=== PATIENT | male | born 1995 | race Hispanic/Latino ===

== ENCOUNTER 2016-09-09 05:28 | Emergency (ER) | payer MEDICAID ==
[2016-09-09 06:40] LABS: Basophils % (Auto) 0.6 % (0.0-1.8); Eosinophils % (Auto) 1.7 % (0.0-4.3); Hematocrit 44.5 % (35.5-45.6); Hemoglobin 14.8 gm/dl (11.8-15.2); Mean Corpuscular HGB Conc 33 % (32-34); Mean Corpuscular Hemoglobin 27 pg (28-32); Mean Corpuscular Volume 82 fl (84-94); Platelet Count 283 K/mm3 (140-440); Red Blood Count 5.41 M/mm3 (3.65-5.03); Red Cell Distribution Width 13.6 % (13.2-15.2); White Blood Count 13.6 K/mm3 (4.5-11.0)
[2016-09-09 06:51] LABS: Anion Gap 23 mmol/L; BUN/Creatinine Ratio 23.33; Blood Urea Nitrogen 14 mg/dL (9-20); Calcium 9.7 mg/dL (8.4-10.2); Carbon Dioxide 21 mmol/L (22-30); Chloride 93.9 mmol/L (98-107); Glucose 318 mg/dL (75-100); Potassium 3.9 mmol/L (3.6-5.0); Sodium 134 mmol/L (137-145)
[2016-09-09] MEDS ORDERED: TORADOL IM ONE (10:29)
[2016-09-09] MEDS ORDERED: PROVENTIL IH ONE (10:29)
--- NOTE | 2016-09-09 10:30 | Emergency Department Report ---
ED General Adult HPI - General Chief complaint: Chest Pain Stated complaint: CHEST PAIN/SOB Time Seen by Provider: 09/09/16 10:14 Source: patient, family Mode of arrival: Ambulatory Limitations: No Limitations, Physical Limitation - History of Present Illness Initial comments: This is a 21-year-old male, he is previously unknown to me, he has a past medical history of obesity, hypertension, PTSD, chronic tobacco use. The patient presents to the ER with multiple complaints. His first complaint is right shoulder pain. Shoulder pain is on the superior lateral aspect of the shoulder. He reports that he did some heavy lifting a week ago, and felt a pop in his shoulder. Since then, he is had right-sided paracervical pain, trapezius pain, and chest wall pain. The patient also complains of cough, mucus production, shortness of breath. The symptoms are chronic. The cough is new and worsened. It got worse around a week ago. He saw his primary care doctor, Dr. Edwards, who prescribed him antibiotics, and he reports that his symptoms have not improved. There is no posterior leg pain or leg swelling, there are no recent trips greater than 4 hours, and there are no recent hospital admissions. The patient reports that he smokes 6-10 cigarettes per day, and he reports multiple family members smoke. There is no midline neck pain, there is no abdominal pain, there is no saddle anesthesia, there is no bladder or bowel retention or incontinence. There is no vomiting or diaphoresis. The patient reports that he does sometimes fall asleep during the day and he feels quite sleepy sometimes during the day, he thinks that he snores a lot at night. He has not had a formal sleep study. He is interested in a nicotine patch for tobacco cessation. -: Gradual Location: chest, right, upper extremity Radiation: extremity Severity scale (0 -10): 7 Quality: aching Consistency: intermittent Improves with: rest Worsens with: movement Associated Symptoms: chest pain, cough, shortness of breath - Related Data Home Medications Medication Instructions Recorded Confirmed Last Taken ALPRAZolam [Xanax TAB] 1 mg PO BID PRN 09/09/16 09/09/16 09/09/16 Bisoprolol/Hctz [Ziac 10-6.25] 1 each PO DAILY 09/09/16 09/09/16 09/09/16 Venlafaxine HCl [Effexor Xr] 150 mg PO DAILY 09/09/16 09/09/16 09/09/16 amLODIPine [Norvasc] 5 mg PO DAILY 09/09/16 09/09/16 09/09/16 glyBURIDE [Glyburide] 5 mg PO BID 09/09/16 09/09/16 09/09/16 metFORMIN [Glucophage] 500 mg PO BID 09/09/16 09/09/16 09/09/16 Previous Rx's Medication Instructions Recorded Last Taken Type Albuterol Sulfate [Proair 90 mcg IH Q4HR PRN #2 [email or web address] 09/09/16 Unknown Rx Respiclick] Ibuprofen [Motrin] 600 mg PO Q8H PRN #30 tablet 09/09/16 Unknown Rx Nicotine [Habitrol] 14 mg TD DAILY #30 patch 09/09/16 Unknown Rx Allergies Allergy/AdvReac Type Severity Reaction Status Date / Time codeine Allergy Unknown Verified 09/09/16 05:56 oxycodone HCl [From Percocet] Allergy Vomiting Verified 09/09/16 05:54 pseudoephedrine sulfate Allergy Vomiting Verified 09/09/16 05:56 [From Claritin-D] ED Review of Systems ROS: Stated complaint: CHEST PAIN/SOB Other details as noted in HPI Constitutional: denies: fever, malaise Eyes: denies: vision change ENT: congestion. denies: epistaxis Respiratory: cough, shortness of breath Cardiovascular: chest pain Gastrointestinal: denies: vomiting Musculoskeletal: arthralgia, myalgia Skin: denies: lesions Neurological: denies: weakness Psychiatric: as per HPI ED Past Medical Hx - Past Medical History Previous Medical History?: Yes Hx Hypertension: Yes Hx Diabetes: Yes Hx Psychiatric Treatment: Yes (depression adhd PTSD asberger's) Additional medical history: autistic, depression - Surgical History Past Surgical History?: Yes Additional Surgical History: tonsillectomy. ear tubes - Social History Smoking Status: Current Every Day Smoker Substance Use Type: None - Medications Home Medications: Home Medications Medication Instructions Recorded Confirmed Last Taken Type ALPRAZolam [Xanax TAB] 1 mg PO BID PRN 09/09/16 09/09/16 09/09/16 History Albuterol Sulfate [Proair 90 mcg IH Q4HR PRN #2 [email or web address] 09/09/16 Unknown Rx Respiclick] Bisoprolol/Hctz [Ziac 10-6.25] 1 each PO DAILY 09/09/16 09/09/16 09/09/16 History Ibuprofen [Motrin] 600 mg PO Q8H PRN #30 tablet 09/09/16 Unknown Rx Nicotine [Habitrol] 14 mg TD DAILY #30 patch 09/09/16 Unknown Rx Venlafaxine HCl [Effexor Xr] 150 mg PO DAILY 09/09/16 09/09/16 09/09/16 History amLODIPine [Norvasc] 5 mg PO DAILY 09/09/16 09/09/16 09/09/16 History glyBURIDE [Glyburide] 5 mg PO BID 09/09/16 09/09/16 09/09/16 History metFORMIN [Glucophage] 500 mg PO BID 09/09/16 09/09/16 09/09/16 History ED Physical Exam - General Limitations: Physical Limitation General appearance: alert, in no apparent distress - Head Head exam: Present: atraumatic, normocephalic - Eye Eye exam: Present: normal appearance, EOMI. Absent: nystagmus - ENT ENT exam: Present: normal exam, normal orophraynx, mucous membranes moist, normal external ear exam - Neck Neck exam: Present: normal inspection, full ROM. Absent: tenderness, meningismus - Respiratory Respiratory exam: Present: normal lung sounds bilaterally, decreased breath sounds. Absent: respiratory distress, rhonchi, stridor - Cardiovascular Cardiovascular Exam: Present: normal rhythm, tachycardia, normal heart sounds. Absent: systolic murmur, diastolic murmur, rubs, gallop - GI/Abdominal GI/Abdominal exam: Present: soft, normal bowel sounds. Absent: distended, tenderness, guarding, rebound, rigid, pulsatile mass - Rectal Rectal exam: Present: deferred - Extremities Exam Extremities exam: Present: normal inspection, tenderness, normal capillary refill, other (the compartments are soft. There is no palpable cord. Sensation is intact to light touch in the deltoid, median, radial, ulnar distribution. 2+ pulses noted in the bilateral upper extremities. Full range of motion to the left upper extremity. Proprioception, light touch, pinprick intact to the bilateral upper extremities. The right shoulder is tender laterally. There is no redness, pus or streaking. The compartments are soft. Full range of motion in the bilateral wrists, bilateral elbows. Patient is able to abduction the right shoulder up to 90, he cannot range it further than 90 secondary to pain. He is able to hold the shoulder parallel to the dfloow without difficulty.). Absent: pedal edema, joint swelling, calf tenderness - Back Exam Back exam: Present: normal inspection, full ROM. Absent: tenderness, CVA tenderness (R), CVA tenderness (L), muscle spasm, paraspinal tenderness, vertebral tenderness - Neurological Exam Neurological exam: Present: alert, oriented X3, normal gait, other (Extraocular movements intact. Tongue midline. No facial droop. Facial sensation intact to light touch in the V1, V2, V3 distribution bilaterally. 5 and 5 strength in 4 extremities.. Sensation is intact to light touch in 4 extremities.). Absent : motor sensory deficit - Psychiatric Psychiatric exam: Present: normal affect, normal mood - Skin Skin exam: Present: warm, dry, intact, normal color. Absent: rash ED Course Vital Signs 09/09/16 09/09/16 09/09/16 05:31 08:57 09:10 Temperature 98.3 F 98.6 F Pulse Rate 117 H 103 H Respiratory 22 20 20 Rate Blood Pressure 152/86 Blood Pressure 126/79 [Right] O2 Sat by Pulse 96 97 98 Oximetry 09/09/16 11:01 Temperature Pulse Rate 98 H Respiratory 18 Rate Blood Pressure Blood Pressure 148/91 [Right] O2 Sat by Pulse 100 Oximetry ED Medical Decision Making - Lab Data Result diagrams: 09/09/16 06:10 09/09/16 06:10 Vital Signs 09/09/16 09/09/16 09/09/16 05:31 08:57 09:10 Temperature 98.3 F 98.6 F Pulse Rate 117 H 103 H Respiratory 22 20 20 Rate Blood Pressure 152/86 Blood Pressure 126/79 [Right] O2 Sat by Pulse 96 97 98 Oximetry 09/09/16 11:01 Temperature Pulse Rate 98 H Respiratory 18 Rate Blood Pressure Blood Pressure 148/91 [Right] O2 Sat by Pulse 100 Oximetry Lab Results 09/09/16 09/09/16 Range/Units 06:10 06:10 WBC 13.6 H (4.5-11.0) K/mm3 RBC 5.41 H (3.65-5.03) M/mm3 Hgb 14.8 (11.8-15.2) gm/dl Hct 44.5 (35.5-45.6) % MCV 82 L (84-94) fl MCH 27 L (28-32) pg MCHC 33 (32-34) % RDW 13.6 (13.2-15.2) % Plt Count 283 (140-440) K/mm3 Lymph % (Auto) 21.3 (13.4-35.0) % Mills % (Auto) 5.5 (0.0-7.3) % Eos % (Auto) 1.7 (0.0-4.3) % Baso % (Auto) 0.6 (0.0-1.8) % Lymph # 2.9 (1.2-5.4) K/mm3 Mills # 0.7 (0.0-0.8) K/mm3 Eos # 0.2 (0.0-0.4) K/mm3 Baso # 0.1 (0.0-0.1) K/mm3 Seg Neutrophils % 70.9 H (40.0-70.0) % Seg Neutrophils # 9.6 H (1.8-7.7) K/mm3 Sodium 134 L (137-145) mmol/L Potassium 3.9 (3.6-5.0) mmol/L Chloride 93.9 L (98-107) mmol/L Carbon Dioxide 21 L (22-30) mmol/L Anion Gap 23 mmol/L BUN 14 (9-20) mg/dL Creatinine 0.6 L (0.8-1.5) mg/dL Estimated GFR > 60 ml/min BUN/Creatinine Ratio 23.33 % Glucose 318 H (75-100) mg/dL Calcium 9.7 (8.4-10.2) mg/dL Troponin T < 0.010 (0.00-0.029) ng/mL - EKG Data -: EKG Interpreted by [facility] EKG shows normal: sinus rhythm Rate: tachycardia - EKG Data 09/09/16 11:26 sinus tachycardia, 108 bpm, motion artifact, abnormal EKG, not consistent with STEMI, appears unchanged from prior EKG from February 2014 - Radiology Data Radiology results: report reviewed, image reviewed X-ray of the shoulder is negative. X-ray the chest is negative - Medical Decision Making Differential diagnosis: Shoulder sprain, shoulder strain, bronchitis, pneumonia , musculoskeletal pain Assessment and plan: 21-year-old male with cough, chest tightness, shortness of breath, mucus production, chronic tobacco use, chronic family members who also consumed tobacco, reproducible right shoulder pain. He is afebrile, with reassuring vital signs, there are no pulmonary blisters or DVT risk factors, he is low risk by well's criteria, he is low risk by CURT score, he is low risk by heart score. Patient's symptoms have been present for more than 8 hours, therefore as per the emergency causes of emergency physicians clinical policy, myocardial infarction may be excluded with one set of troponin/cardiac enzymes. He has no neurovascular deficits, he felt improved after Toradol, and albuterol. His tachycardia resolved. His physical exam and history are not consistent with cervical/epidural compression or radicular compression. He is placed in a sling. Extensive discussion had with the patient regarding the need for lifestyle modifications, including tobacco sensation, and follow-up with his primary care doctor for his blood pressure, and glucose. I also instructed him and family members presents to discontinue tobacco consumption. Critical care attestation.: If time is entered above; I have spent that time in minutes in the direct care of this critically ill patient, excluding procedure time. ED Disposition Clinical Impression: Bronchitis, Right shoulder pain Disposition: [id number] TO HOME OR SELFCARE Is pt being admited?: No Does the pt Need Aspirin: No Condition: Stable Instructions: Chronic Bronchitis (ED) Additional Instructions: Symptoms most likely coming from bronchitis, tobacco use, and possible ligamentous/soft tissue injury to the right upper extremity. Keep the sling on the right upper extremity, discontinue the sling at night, range of motion to the right upper extremity as tolerated, and follow-up with your primary care doctor or orthopedist for the right upper extremity pain within the next week. Most likely, the patient will require outpatient rehabilitation, physical therapy of the shoulder. I recommend that the patient discontinued tobacco consumption. The patient should also make attempts to not be exposed to secondhand smoke. Take the nicotine patch as directed. Discontinue tobacco consumption. I recommend lifestyle modification, including a healthy diet, physical activity and exercise as tolerated and able, and weight loss. To use the nicotine patch, the smoker applies one patch each morning to any non- hairy skin site. It is removed and replaced with a new patch the next morning. The patch site should be rotated daily to avoid skin irritation, which is the most common side effect. Insomnia and vivid dreams are frequently reported when the patch is left on overnight. These can be minimized by removing the patch at bedtime. Smoking cessation rates are similar whether the patch is left on for 24 hours or taken off at night [18]. If the patch is removed at night, substantial plasma levels of nicotine are reached 30 minutes to three hours after a new patch is applied in the morning [19]. Patients who remove the patch at night and experience morning cravings for nicotine can use a short-acting form of NRT (eg, gum, lozenge) while waiting for the nicotine patch to take effect. Follow up with the pulmonary sleep specialist within the next month. Return to the ER right away with new pain, worsened pain, migration of pain, fevers, chills, chest pain, shortness of breath, intractable nausea or vomiting, inability to tolerate liquid feeds. As long as the patient continues to smoke, and people that he lives with continue to smoke, symptoms will most likely persist. Prescriptions: Albuterol Sulfate [Proair Respiclick] 90 mcg IH Q4HR PRN #2 aer.[email or web address] PRN Reason: Wheezing Ibuprofen [Motrin] 600 mg PO Q8H PRN #30 tablet PRN Reason: Pain Nicotine [Habitrol] 14 mg TD DAILY #30 patch Referrals: JAMES EDWARDS MD [Primary Care Provider] - 3-5 Days DINESH LE MD [Staff Physician] - 3-5 Days ZOHRA HSU MD [Staff Physician] - 3-5 Days
[2016-09-09 11:02] VITALS: BP 148/91
--- NOTE | 2016-09-09 11:03 | XRay Report ---
FINAL REPORT EXAM: XR CHEST ROUTINE 2V HISTORY: Shortness of breath. TECHNIQUE: Two frontal and two lateral radiographs of the chest were obtained. No prior studies are available for comparison. FINDINGS: The exam is somewhat limited due to patient body habitus and technical factors. The cardiac silhouette and mediastinum are within normal limits. The lungs are clear bilaterally, without focal infiltrate or effusion. There is no pneumothorax. There are mild spondylotic changes seen throughout the spine. IMPRESSION: No active disease seen in the chest.
--- NOTE | 2016-09-09 11:03 | XRay Report ---
FINAL REPORT EXAM: XR SHOULDER 2+V RT HISTORY: Right shoulder pain. TECHNIQUE: Three radiographs of right shoulder were obtained. No prior studies are available for comparison. FINDINGS: The Y-view is somewhat limited due to motion artifact. There is no fracture or dislocation. No discrete osseous abnormality is seen. No significant soft tissue abnormality is identified. IMPRESSION: No fracture, dislocation, or other osseous abnormality.
== END 2016-09-09 11:24 | disposition home or self-care (01) ==
LOC: ED 05:28
DX: J40 Bronchitis, not specified as acute or chronic (principal); M25.511 Pain in right shoulder; I10 Essential (primary) hypertension; E11.9 Type 2 diabetes mellitus without complications; F32.9 Major depressive disorder, single episode, unspecified; F43.10 Post-traumatic stress disorder, unspecified; F17.200 Nicotine dependence, unspecified, uncomplicated; Z90.89 Acquired absence of other organs; Z88.6 Allergy status to analgesic agent
CPT/HCPCS: 36415; 71020; 73030; 80048; 82962; 84484; 85025; 93005; 93010; 96372; 99284; J1885

== ENCOUNTER 2017-03-01 19:44 | Emergency (ER) | payer MEDICAID ==
[2017-03-01 19:59] VITALS: BP 144/80
[2017-03-01 20:59] LABS: Basophils # (Auto) 0.1 K/mm3 (0.0-0.1); Basophils % (Auto) 0.6 % (0.0-1.8); Eosinophils # (Auto) 0.3 K/mm3 (0.0-0.4); Eosinophils % (Auto) 2.7 % (0.0-4.3); Hematocrit 49.6 % (35.5-45.6); Lymphocytes # (Auto) 2.5 K/mm3 (1.2-5.4); Lymphocytes % (Auto) 21.6 % (13.4-35.0); Mean Corpuscular HGB Conc 32 % (32-34); Mean Corpuscular Hemoglobin 27 pg (28-32); Mean Corpuscular Volume 84 fl (84-94); Monocytes # (Auto) 0.4 K/mm3 (0.0-0.8); Monocytes % (Auto) 3.7 % (0.0-7.3); Platelet Count 367 K/mm3 (140-440); Red Blood Count 5.91 M/mm3 (3.65-5.03); Red Cell Distribution Width 13.9 % (13.2-15.2)
[2017-03-01 21:02] LABS: BUN/Creatinine Ratio 20; Blood Urea Nitrogen 10 mg/dL (9-20); Calcium 9.8 mg/dL (8.4-10.2); Hemolysis Index 18
== END 2017-03-01 21:40 | disposition left against medical advice (07) ==
LOC: ED 19:44
DX: M25.562 Pain in left knee (principal); M25.561 Pain in right knee; Z53.21 Procedure and treatment not carried out due to patient leaving prior to being seen by health care provider
CPT/HCPCS: 36415; 80048; 85025